=== PATIENT | female | born 1950 | race Caucasian/White ===

== ENCOUNTER 2019-02-06 15:53 | Emergency (ER) | payer MEDICARE, BC ==
[2019-02-06] MEDS ORDERED: Sodium Chloride 0.9% 10 ML Syringe FLUSH PRN (16:24)
[2019-02-06] MEDS ORDERED: Sodium Chloride 0.9% 1,000 ML IV ONE (16:25)
[2019-02-06 17:20] LABS: CHLORIDE,CL 106 mmol/L (98-107); SODIUM,NA 145 mmol/L (136-145)
--- NOTE | 2019-02-06 17:26 | CT ---
[id number] CT/CT Head WO IV EXAM: NONCONTRAST HEAD CT INDICATION: Acute vertigo and fatigue. COMPARISON: January 04, 2012. DISCUSSION: Mild generalized atrophy is similar to the previous examination. Stable mild chronic small vessel ischemic changes. No mass effect or midline shift. No acute hemorrhage or extra-axial fluid collection. No acute territorial infarct is identified. A limited look at the orbits and paranasal sinuses is unremarkable. There are a few chronically opacified mastoid air cells which have not changed in appearance. IMPRESSION: 1. No acute findings. Armando Moon MD 02/06/19 [id number] Thank you for allowing us to participate in the care of your patient.
--- NOTE | 2019-02-06 18:01 | EDM.PDOC ---
ED HPI GENERAL MEDICAL PROBLEM - General Stated Complaint: DIZZY AND WEAK Time Seen by Provider: 02/06/19 16:00 Source of Information: Reports: Patient History Limitations: Reports: No Limitations - History of Present Illness INITIAL COMMENTS - FREE TEXT/NARRATIVE: Pt. presents to ER with complaints of lightheadedness and vertigo that started earlier throughout the day today. She denies any other significant symptoms. No recent head trauma. No fever or chills. No chest pain or shortness of breath. She states that she has never experienced symptoms like this in the past. No nausea, vomiting, or diarrhea. No blood in stools. Denies any history of anemia , cardiovascular, or neurovascular disease. Pt. states that she has been drinking less and has been active as it has been warm outside. She states that she has had some issues with sinus congestion over the past week which she attributes to seasonal allergies. Pt. denies any nausea, vomiting, diarrhea, cough, fever or chills. Her only other complaint is that of fatigue that she has been experiencing for some time. Onset: Today Location: Reports: Generalized - Related Data Allergies Allergy/AdvReac Type Severity Reaction Status Date / Time escitalopram oxalate Allergy Headache Verified 09/22/13 07:57 [From Lexapro] estrogens, conjugated Allergy Headache Verified 09/25/13 10:27 [From Prempro] medroxyprogesterone acetate Allergy Headache Verified 09/25/13 10:27 [From Prempro] Home Meds: Home Meds Niya/Cell/Lipas/Malt/Prt/Lac/in [Digestive Enzymes] 1 each PO TID 09/22/13 [ History] Cholecalciferol (Vitamin D3) [Vitamin D-3] 2,000 unit PO DAILY 09/22/13 [History ] Levothyroxine [Sythroid] 100 mcg PO DAILY 09/22/13 [History] Multivitamin [Multi Vitamin Daily] 1 each PO 09/22/13 [History] [place]-3 Fatty Acids [[place]-3] 1,000 mg PO DAILY 09/22/13 [History] Niya/Cell/Lipas/Malt/Prt/Lac/in [Digestive Enzymes] 1 cap PO TID 03/10/15 [ History] Cholecalciferol (Vitamin D3) [Vitamin D3] 2,000 units PO DAILY 03/10/15 [History ] Fish Oil/[place]-3 Fatty Acids [Fish Oil 1,000 MG] 1,000 mg PO BID 03/10/15 [ History] Levothyroxine [Synthroid] 1 tab PO DAILY 03/10/15 [History] Multivitamin [Daily Vitamin] 1 tab PO DAILY 03/10/15 [History] Past Medical History Other HEENT History: bruning mouth syndrome Other Gastrointestinal History: fm hx malignant neoplasm of bi tract Other Musculoskeletal History: rt thigh pain ED ROS GENERAL - Review of Systems Review Of Systems: See Below Constitutional: Reports: No Symptoms, Fatigue. Denies: Fever, Chills, Malaise, Weakness, Night Sweats HEENT: Reports: No Symptoms Respiratory: Reports: No Symptoms Cardiovascular: Reports: Lightheadedness. Denies: Chest Pain, Dyspnea on Exertion, Edema, Orthopnea, Palpitations Endocrine: Reports: No Symptoms GI/Abdominal: Reports: No Symptoms : Reports: No Symptoms Musculoskeletal: Reports: No Symptoms Skin: Reports: No Symptoms Neurological: Reports: Dizziness. Denies: Confusion, Headache, Numbness, Paresthesia, Trouble Speaking, Difficulty Walking, Gait Disturbance Psychiatric: Reports: No Symptoms Hematologic/Lymphatic: Reports: No Symptoms Immunologic: Reports: No Symptoms ED EXAM, GENERAL - Physical Exam Exam: See Below Exam Limited By: No Limitations General Appearance: Alert, WD/WN, No Apparent Distress Eye Exam: Bilateral Eye: EOMI, Normal Fundi, Normal Inspection, PERRL Ears: Normal External Exam, Normal Canal, Hearing Grossly Normal, Normal TMs Ear Exam: Bilateral Ear: Auricle Normal, Canal Normal, TM normal Nose: Normal Inspection, Normal Mucosa, No Blood Throat/Mouth: Normal Inspection, Normal Lips, Normal Teeth, Normal Gums, Normal Oropharynx, Normal Voice, No Airway Compromise Head: Atraumatic, Normocephalic Neck: Normal Inspection, Supple, Non-Tender, Full Range of Motion Respiratory/Chest: No Respiratory Distress, Lungs Clear, Normal Breath Sounds, No Accessory Muscle Use, Chest Non-Tender Cardiovascular: Normal Peripheral Pulses, Regular Rate, Rhythm, No Edema, No Gallop, No JVD, No Murmur, No Rub Peripheral Pulses: 4+: Radial (L), Radial (R) GI/Abdominal: Normal Bowel Sounds, Soft, Non-Tender, No Organomegaly, No Distention, No Mass (Female) Exam: Deferred Rectal (Female) Exam: Deferred Back Exam: Normal Inspection Extremities: Normal Inspection, Normal Range of Motion, Non-Tender, No Pedal Edema, Normal Capillary Refill Neurological: Alert, Oriented, CN II-XII Intact, Normal Cognition, Normal Gait, Normal Reflexes, No Motor/Sensory Deficits Psychiatric: Normal Affect, Normal Mood Skin Exam: Warm, Dry, Intact, Normal Color, No Rash Lymphatic: No Adenopathy EKG INTERPRETATION Rhythm: NSR [place]: Normal P-Wave: Present QRS: Normal ST-T: Normal QT: Normal Course - Orders/Labs/Meds Orders: Active Orders 24 hr Category Date Time Status EKG Documentation Completion [RC] STAT Care 02/06/19 16:27 Active Sodium Chloride 0.9% [Saline Flush] Med 02/06/19 16:24 Active 10 ml FLUSH ASDIRECTED PRN Peripheral IV Insertion Adult [OM.PC] Routine Oth 02/06/19 16:25 Ordered Medication Orders Sodium Chloride (Saline Flush) 10 ml FLUSH ASDIRECTED PRN PRN Reason: Keep Vein Open Labs: Laboratory Tests 02/06/19 02/06/19 02/06/19 Range/Units 16:40 16:40 16:40 WBC 4.5 (4.0-10.0) x10^3/uL RBC 4.09 (4.00-5.50) x10^6/uL Hgb 12.5 (12.0-16.0) g/dL Hct 36.4 (33.0-47.0) % MCV 89.0 (78.0-93.0) fL MCH 30.6 (26.0-32.0) pg MCHC 34.3 (32.0-36.0) g/dL RDW Coeff of Tushar 12.1 (10.0-15.0) % Plt Count 255 (130-400) x10^3/uL Neut % (Auto) 54.1 (50.0-80.0) % Lymph % (Auto) 34.6 (25.0-50.0) % [place] % (Auto) 8.2 (2.0-11.0) % Eos % (Auto) 2.4 (0.0-4.0) % Baso % (Auto) 0.7 (0.2-1.2) % PT 10.1 (10.0-12.8) SEC INR 0.9 L (2.0-3.5) Sodium 145 (136-145) mmol/L Potassium 4.0 (3.5-5.1) mmol/L Chloride 106 (98-107) mmol/L Carbon Dioxide 30 (21-32) mmol/L Anion Gap 13.0 (10-20) mmol/L BUN 21 H (7-18) mg/dL Creatinine 0.8 (0.55-1.02) mg/dL Est Cr Clr Drug Dosing TNP Estimated GFR (MDRD) > 60 Glucose 80 (74-106) mg/dL Calcium 9.3 (8.5-10.1) mg/dL Corrected Calcium 9.30 (8.5-10.1) mg/dL Phosphorus 5.6 H (2.6-4.7) mg/dL Magnesium 2.1 (1.8-2.4) mg/dL Total Bilirubin 0.4 (0.2-1.0) mg/dL AST 14 L (15-37) U/L ALT 23 (14-59) U/L Alkaline Phosphatase 53 (46-116) U/L Troponin I < 0.017 (<=0.056) ng/mL C-Reactive Protein 0.4 (<=0.9) mg/dL Total Protein 7.1 (6.4-8.2) g/dL Albumin 4.0 (3.4-5.0) g/dL Globulin 3.1 Albumin/Globulin Ratio 1.29 TSH, Ultra Sensitive 0.671 (0.358-3.74) uIU/mL Meds: Medications Generic Name Dose Route Start Last Admin Trade Name Freq PRN Reason Stop Dose Admin Sodium Chloride 10 ml 02/06/19 16:24 Saline Flush FLUSH ASDIRECTED PRN Keep Vein Open Discontinued Medications Generic Name Dose Route Start Last Admin Trade Name Freq PRN Reason Stop Dose Admin Sodium Chloride 1,000 mls @ 1,000 mls/hr 02/06/19 16:25 Normal Saline IV 02/06/19 17:24 .BOLUS ONE - Radiology Interpretation Free Text/Narrative:: CT brain without contrast negative of acute pathology Departure - Departure Time of Disposition: 18:05 (3) Disposition: Home, Self-Care 01 Condition: Good Clinical Impression: Dehydration - Discharge Information Instructions: Dehydration, Adult, [id number] Referrals: Susan Treadwell MD [Primary Care Provider] - Additional Instructions: Home to rest. Drink plenty of fluids. Recheck in clinic in 10-14 days. - My Orders Last 24 Hours: My Active Orders 02/06/19 16:24 Sodium Chloride 0.9% [Saline Flush] 10 ml FLUSH ASDIRECTED PRN 02/06/19 16:25 Peripheral IV Insertion Adult [OM.PC] Routine 02/06/19 16:27 EKG Documentation Completion [RC] STAT - Assessment/Plan Last 24 Hours: My Active Orders 02/06/19 16:24 Sodium Chloride 0.9% [Saline Flush] 10 ml FLUSH ASDIRECTED PRN 02/06/19 16:25 Peripheral IV Insertion Adult [OM.PC] Routine 02/06/19 16:27 EKG Documentation Completion [RC] STAT Plan: Symptoms resolved after IV fluids. CT brain did not reveal any acute pathology. She was given a total of 1 liter of normal saline. Pt. was urged to increase her fluid intake in the warm weather. Follow-up in clinic in 7-10 days for recheck. Return to ER if she has any increased lightheadedness, chest pain, or shortness of breath.
[2019-02-06 19:12] VITALS: BP 135/73
== END 2019-02-06 18:05 | disposition home or self-care (01) ==
LOC: VM.ED 15:53
DX: E86.0 Dehydration (principal); Z79.899 Other long term (current) drug therapy; Z88.8 Allergy status to other drugs, medicaments and biological substances
CPT/HCPCS: 36415; 70450; 80053; 83735; 84100; 84443; 84484; 85025; 85610; 86140; 93005; 96360; 99284-25; J7030

== ENCOUNTER 2021-03-13 13:02 | Emergency (ER) | payer MEDICARE, BC ==
[2021-03-13] MEDS ORDERED: Sodium Chloride 0.9% 10 ML Syringe FLUSH PRN (13:11)
[2021-03-13] MEDS: Aspirin 81 MG Tab.Chew PO ONE (13:18)
[2021-03-13 14:02] LABS: CHLORIDE,CL 105 mmol/L (98-107); SODIUM,NA 144 mmol/L (136-145)
[2021-03-13 14:03] LABS: ANION GAP 10.8 mmol/L (5-15)
--- NOTE | 2021-03-13 14:10 | EDM.PDOC ---
ED HPI GENERAL MEDICAL PROBLEM - General Stated Complaint: BACK AND CHEST PAIN SOB Time Seen by Provider: 03/13/21 13:15 Source of Information: Reports: Patient, Family History Limitations: Reports: No Limitations - History of Present Illness INITIAL COMMENTS - FREE TEXT/NARRATIVE: Patient presents to the ED for epigastric and chest pain that was accompanied by diaphoresis and nausea today at 12:45/ SHe had eaten in the last hour, felt fine and suddenly had this pain/. It lasted 15 minutes. She is better now. No heart history in herself. Has had a stress test in the last 1-2 years. no recent travel, no chest trauma. Has had her covid vaccine. - Related Data Allergies Allergy/AdvReac Type Severity Reaction Status Date / Time escitalopram oxalate AdvReac Headache Verified 10/03/20 12:04 [From Lexapro] estrogens, conjugated AdvReac Headache Verified 10/03/20 12:04 [From Prempro] medroxyprogesterone acetate AdvReac Headache Verified 10/03/20 12:04 [From Prempro] Home Meds: Home Meds Niya/Cell/Lipas/Malt/Prt/Lac/in [Digestive Enzymes] 1 each PO TID 09/22/13 [History] Levothyroxine [Sythroid] 100 mcg PO DAILY 09/22/13 [History] Multivitamin [Multi Vitamin Daily] 1 each PO DAILY 09/22/13 [History] [place]-3 Fatty Acids [[place]-3] 1,000 mg PO DAILY 09/22/13 [History] Niya/Cell/Lipas/Malt/Prt/Lac/in [Digestive Enzymes] 1 cap PO TID 03/10/15 [History] Cholecalciferol (Vitamin D3) [Vitamin D3] 2,000 units PO DAILY 03/10/15 [History] Past Medical History Other HEENT History: bruning mouth syndrome Other Gastrointestinal History: fm hx malignant neoplasm of bi tract Other Musculoskeletal History: rt thigh pain Social & Family History - Tobacco Use Tobacco Use Status *Q: Never Tobacco User - Alcohol Use Alcohol Use History: Yes Alcohol Use Frequency: Socially - Recreational Drug Use Recreational Drug Use: No Drug Use in Last 12 Months: No ED ROS GENERAL - Review of Systems Review Of Systems: See Below Constitutional: Reports: Diaphoresis HEENT: Reports: No Symptoms Respiratory: Denies: Shortness of Breath, Cough Cardiovascular: Reports: Chest Pain Endocrine: Reports: No Symptoms GI/Abdominal: Reports: No Symptoms : Reports: No Symptoms Musculoskeletal: Reports: No Symptoms Skin: Reports: No Symptoms Neurological: Reports: No Symptoms ED EXAM, GENERAL - Physical Exam Exam: See Below Exam Limited By: No Limitations General Appearance: Alert, WD/WN, No Apparent Distress Eye Exam: Bilateral Eye: EOMI, Normal Inspection, PERRL Nose: Normal Inspection, Normal Mucosa Throat/Mouth: Normal Inspection, Normal Lips, Normal Teeth, Normal Voice Head: Atraumatic, Normocephalic Neck: Normal Inspection, Supple, Non-Tender, Full Range of Motion Respiratory/Chest: No Respiratory Distress, Lungs Clear, Normal Breath Sounds, No Accessory Muscle Use, Chest Non-Tender Cardiovascular: Normal Peripheral Pulses, Regular Rate, Rhythm, No Murmur GI/Abdominal: Normal Bowel Sounds, Soft, Non-Tender, No Organomegaly Extremities: Normal Inspection, Normal Range of Motion, Non-Tender Neurological: Alert, Oriented, CN II-XII Intact, Normal Cognition, Normal Gait, No Motor/Sensory Deficits #1 Interpretation EKG Date: 03/13/21 Time: 13:18 Rhythm: NSR (t) [place]: Normal P-Wave: Present (artifact, and PAC) QRS: Normal ST-T: Normal Comparison: NA - No Prior EKG Course - Vital Signs Last Recorded V/S: Last Vital Signs Temp 36.7 C 03/13/21 16:30 Pulse 60 03/13/21 16:30 Resp 16 03/13/21 16:30 BP 128/70 03/13/21 16:30 Pulse Ox 100 03/13/21 16:30 - Orders/Labs/Meds Orders: Active Orders 24 hr Category Date Time Status Peripheral IV Insertion Adult [OM.PC] Stat Oth 03/13/21 13:11 Ordered Labs: Laboratory Tests 03/13/21 03/13/21 03/13/21 Range/Units 13:30 13:30 15:19 WBC 5.4 (4.0-10.0) x10^3/uL RBC 4.22 (4.00-5.50) x10^6/uL Hgb 12.8 (12.0-16.0) g/dL Hct 37.8 (33.0-47.0) % MCV 89.6 (78.0-93.0) fL MCH 30.3 (26.0-32.0) pg MCHC 33.9 (32.0-36.0) g/dL RDW Coeff of Tushar 12.5 (10.0-15.0) % Plt Count 294 (130-400) x10^3/uL Neut % (Auto) 60.5 (50.0-80.0) % Lymph % (Auto) 30.6 (25.0-50.0) % [place] % (Auto) 6.3 (2.0-11.0) % Eos % (Auto) 2.0 (0.0-4.0) % Baso % (Auto) 0.6 (0.2-1.2) % Sodium 144 (136-145) mmol/L Potassium 3.8 (3.5-5.1) mmol/L Chloride 105 (98-107) mmol/L Carbon Dioxide 32 (21-32) mmol/L Anion Gap 10.8 (5-15) mmol/L BUN 12 (7-18) mg/dL Creatinine 0.9 (0.55-1.02) mg/dL Est Cr Clr Drug Dosing TNP Estimated GFR (MDRD) > 60 Glucose 101 H (70-99) mg/dL Calcium 8.7 (8.5-10.1) mg/dL Corrected Calcium 8.7 (8.5-10.1) mg/dL Magnesium 2.2 (1.8-2.4) mg/dL Total Bilirubin 0.4 (0.2-1.0) mg/dL AST 20 (15-37) U/L ALT 24 (14-59) U/L Alkaline Phosphatase 60 (46-116) U/L Troponin I High Sens < 4 < 4 (<=51) ng/L NT-Pro-B Natriuret Pep 237 H (<=125) pg/mL Total Protein 7.1 (6.4-8.2) g/dL Albumin 4.0 (3.4-5.0) g/dL Globulin 3.1 Albumin/Globulin Ratio 1.29 Meds: Medications Discontinued Medications Generic Name Dose Route Start Last Admin Trade Name Freq PRN Reason Stop Dose Admin Aspirin 324 mg 03/13/21 13:11 03/13/21 13:18 Aspirin 81 Mg Tab.Chew PO 03/13/21 13:12 324 mg ONETIME ONE Administration Sodium Chloride 10 ml 03/13/21 13:11 Sodium Chloride 0.9% 10 Ml Syringe FLUSH ASDIRECTED PRN Keep Vein Open - Radiology Interpretation Free Text/Narrative:: normal chest x-ray interpreted by radiology - Re-Assessments/Exams Free Text/Narrative Re-Assessment/Exam: 03/13/21 14:09 given aspirin 324 mg, no pain now, but pain started 30 minutes prior to arrival. Will repeat a troponin at 2 hours. 03/13/21 continue to be pain free. Stress test in the last 6 months. Has follow up in a week. Discussed negative troponin and need for possible EGd if problems continued. Departure - Departure Time of Disposition: 16:27 Disposition: Home, Self-Care 01 Condition: Good Clinical Impression: Chest pain Instructions: Nonspecific Chest Pain, Adult Referrals: PCP,None [Primary Care Provider] - Forms: ED Department Discharge Additional Instructions: Testing was negative for heart attack today. Follow up with PCP. Sepsis Event Note (ED) - Focused Exam Vital Signs: Vital Signs Temp Pulse Resp BP Pulse Ox 03/13/21 16:30 36.7 C 60 16 128/70 100 03/13/21 15:30 36.6 C 60 16 132/72 100 03/13/21 14:30 65 16 132/60 99 03/13/21 13:10 37.0 C 62 16 136/67 99 - My Orders Last 24 Hours: My Active Orders 03/13/21 13:11 Peripheral IV Insertion Adult [OM.PC] Stat - Assessment/Plan Last 24 Hours: My Active Orders 03/13/21 13:11 Peripheral IV Insertion Adult [OM.PC] Stat
--- NOTE | 2021-03-13 14:10 | CR ---
[id number] RAD/RAD Chest PA or AP 1V EXAM: FRONTAL CHEST INDICATION: CHEST PAIN. COMPARISON: September 18, 2012. DISCUSSION: The lungs are mildly hyperinflated compatible with COPD, but clear. Chronic bilateral rib fractures are unchanged. Normal heart size. No effusions. IMPRESSION: 1. No acute findings. Armando Moon MD 03/13/21 3042 Thank you for allowing us to participate in the care of your patient.
[2021-03-13 17:42] VITALS: BP 128/70; PULSE 60
== END 2021-03-13 16:45 | disposition home or self-care (01) ==
LOC: VM.ED 13:02
DX: R07.9 Chest pain, unspecified (principal); Z79.899 Other long term (current) drug therapy; Z88.5 Allergy status to narcotic agent; Z88.8 Allergy status to other drugs, medicaments and biological substances
CPT/HCPCS: 36415; 71045; 80053; 83735; 83880; 84484; 85025; 93005; 93010; 99284; 99285-25; A9270-GY

== ENCOUNTER 2024-04-07 02:00 | Emergency (ER) | payer MEDICARE, BC ==
[2024-04-07] MEDS ORDERED: Sodium Chloride 0.9% 10 ML Syringe FLUSH PRN (02:06)
[2024-04-07] MEDS: HYDROmorphone 0.5 MG/0.5 ML Syringe IVPUSH ONE ×2 (02:23→02:45)
[2024-04-07 02:44] VITALS: PULSE 68
[2024-04-07 03:17] VITALS: BP 136/60
== END 2024-04-07 03:05 | disposition home or self-care (01) ==
LOC: VM.ED 02:00
DX: S52.571A Other intraarticular fracture of lower end of right radius, initial encounter for closed fracture (principal); S52.611A Displaced fracture of right ulna styloid process, initial encounter for closed fracture; Z79.890 Hormone replacement therapy; Z79.899 Other long term (current) drug therapy; Z88.8 Allergy status to other drugs, medicaments and biological substances; W18.30XA Fall on same level, unspecified, initial encounter
CPT/HCPCS: 29125; 73110-RT; 96374; 99284; 99284-25; J1170

== ENCOUNTER 2025-07-22 12:46 | Inpatient (IN) | payer MEDICARE, BC ==
[2025-07-22] MEDS ORDERED: Ondansetron 4 MG/2 ML SDV IV PRN (14:28)
[2025-07-22] MEDS ORDERED: Ondansetron 4 MG Tab.DIS PO PRN (14:28)
[2025-07-22] MEDS: Sodium Chloride 0.9% 10 ML Syringe FLUSH PRN (14:31)
[2025-07-22] MEDS: Potassium Bicarbonate 25 MEQ Tab.EFF PO SCH (15:00)
[2025-07-22] MEDS ORDERED: LORazepam 2 MG/ML SDV IVPUSH PRN (16:46)
[2025-07-22] MEDS ORDERED: Flumazenil 0.1 MG/ML 5 ML MDV IVPUSH PRN (16:46)
[2025-07-22] MEDS ORDERED: Hypromellose 0.3% Ophth Soln 15 ML Bottle EYEBOTH PRN (17:11)
[2025-07-22] MEDS: NS with KCl 40mEq 1,000 ML IV SCH (17:15)
[2025-07-22 17:37] LABS: A/G RATIO 1.06; ALANINE AMINOTRANSFERASE,ALT 15.0 U/L (14-59); ASPARTATE AMNIOTRANSFERASE,AST 12.0 U/L (15-37); BILIRUBIN TOTAL 0.4 mg/dL (0.2-1.0); BLOOD UREA NITROGEN,BUN 10.0 mg/dL (7-18); CARBON DIOXIDE,CO2 29.0 mmol/L (21-32); CHLORIDE,CL 103.0 mmol/L (98-107); CREATININE 0.7 mg/dL (0.55-1.02); EST CRCL DRUG DOSING (CG) 60.56 mL/min; GLUCOSE RANDOM 127.0 mg/dL (70-99); POTASSIUM,K 3.2 mmol/L (3.5-5.1); PROTEIN TOTAL,TP 6.4 g/dL (6.4-8.2); SODIUM,NA 143.0 mmol/L (136-145)
[2025-07-22 17:38] LABS: ESTIMATED GFR 89.0 mL/min (>=60)
[2025-07-22] MEDS: Potassium Chloride 20 MEQ Tab.ER PO SCH (20:03)
[2025-07-23 06:46] LABS: BASOPHILS ABSOLUTE AUTO 0.0 x10^3/uL (0.0-0.2); BASOPHILS PERCENT AUTO 0.2 % (0.2-1.2); EOSINOPHILS ABSOLUTE AUTO 0.1 x10^3/uL (0.0-0.5); EOSINOPHILS PERCENT AUTO 1.8 % (0.0-4.0); IMMATURE GRAN ABSOLUTE AUTO 0.00 x10^3/uL (0.00-0.07); IMMATURE GRAN PERCENT AUTO 0.00 % (0.00-0.43); LYMPHOCYTES ABSOLUTE AUTO 1.4 x10^3/uL (1.0-4.8); LYMPHOCYTES PERCENT AUTO 30.4 % (25.0-50.0); MONOCYTES ABSOLUTE AUTO 0.5 x10^3/uL (0.0-0.8); MONOCYTES PERCENT AUTO 11.7 % (2.0-11.0); NEUTROPHILS ABSOLUTE AUTO 2.5 x10^3/uL (1.8-7.7); NEUTROPHILS PERCENT AUTO 55.9 % (50.0-80.0); PLATELET COUNT,PLT 302 x10^3/uL (130-400); RED BLOOD CELL COUNT 3.75 x10^6/uL (4.00-5.50); WHITE BLOOD CELL COUNT,WBC 4.5 x10^3/uL (4.0-10.0)
[2025-07-23 07:02] LABS: BLOOD UREA NITROGEN,BUN 6.0 mg/dL (7-18); CARBON DIOXIDE,CO2 27.0 mmol/L (21-32); CHLORIDE,CL 110.0 mmol/L (98-107); CREATININE 0.6 mg/dL (0.55-1.02); EST CRCL DRUG DOSING (CG) 70.66 mL/min; GLUCOSE RANDOM 88.0 mg/dL (70-99); POTASSIUM,K 3.0 mmol/L (3.5-5.1); SODIUM,NA 146.0 mmol/L (136-145)
[2025-07-23 07:03] LABS: ESTIMATED GFR 92.0 mL/min (>=60)
[2025-07-23] MEDS: Sodium Chloride 0.45% with KCl 1,000 ML IV SCH (11:20)
[2025-07-23] MEDS: Potassium Chloride 20 MEQ Tab.ER PO SCH (16:00)
[2025-07-23] MEDS: Iopamidol 612 MG/ML 100 ML Bottle IVPUSH ONE (16:48)
[2025-07-23] MEDS: Iopamidol 612 MG/ML 30 ML SDV PO ONE (16:48)
[2025-07-24 08:02] LABS: BASOPHILS ABSOLUTE AUTO 0.0 x10^3/uL (0.0-0.2); BASOPHILS PERCENT AUTO 0.4 % (0.2-1.2); EOSINOPHILS ABSOLUTE AUTO 0.1 x10^3/uL (0.0-0.5); EOSINOPHILS PERCENT AUTO 1.6 % (0.0-4.0); IMMATURE GRAN ABSOLUTE AUTO 0.02 x10^3/uL (0.00-0.07); IMMATURE GRAN PERCENT AUTO 0.40 % (0.00-0.43); LYMPHOCYTES ABSOLUTE AUTO 1.4 x10^3/uL (1.0-4.8); LYMPHOCYTES PERCENT AUTO 28.8 % (25.0-50.0); MONOCYTES ABSOLUTE AUTO 0.4 x10^3/uL (0.0-0.8); MONOCYTES PERCENT AUTO 8.8 % (2.0-11.0); NEUTROPHILS ABSOLUTE AUTO 2.9 x10^3/uL (1.8-7.7); NEUTROPHILS PERCENT AUTO 60.0 % (50.0-80.0); PLATELET COUNT,PLT 316 x10^3/uL (130-400); RED BLOOD CELL COUNT 4.01 x10^6/uL (4.00-5.50); WHITE BLOOD CELL COUNT,WBC 4.9 x10^3/uL (4.0-10.0)
[2025-07-24 08:21] LABS: A/G RATIO 0.94; ALANINE AMINOTRANSFERASE,ALT 15.0 U/L (14-59); ASPARTATE AMNIOTRANSFERASE,AST 16.0 U/L (15-37); BILIRUBIN TOTAL 0.3 mg/dL (0.2-1.0); BLOOD UREA NITROGEN,BUN 3.0 mg/dL (7-18); CARBON DIOXIDE,CO2 28.0 mmol/L (21-32); CHLORIDE,CL 112.0 mmol/L (98-107); CREATININE 0.6 mg/dL (0.55-1.02); EST CRCL DRUG DOSING (CG) 70.66 mL/min; GLUCOSE RANDOM 85.0 mg/dL (70-99); POTASSIUM,K 4.5 mmol/L (3.5-5.1); PROTEIN TOTAL,TP 6.0 g/dL (6.4-8.2); SODIUM,NA 148.0 mmol/L (136-145)
[2025-07-24 08:22] LABS: ESTIMATED GFR 92.0 mL/min (>=60)
[2025-07-25 09:02] LABS: BLOOD UREA NITROGEN,BUN 4.0 mg/dL (7-18); CARBON DIOXIDE,CO2 27.0 mmol/L (21-32); CHLORIDE,CL 107.0 mmol/L (98-107); CREATININE 0.6 mg/dL (0.55-1.02); EST CRCL DRUG DOSING (CG) 70.66 mL/min; GLUCOSE RANDOM 83.0 mg/dL (70-99); POTASSIUM,K 4.3 mmol/L (3.5-5.1); SODIUM,NA 144.0 mmol/L (136-145)
[2025-07-25 09:05] LABS: ESTIMATED GFR 92.0 mL/min (>=60)
[2025-07-25 10:08] VITALS: BP 132/66; PULSE 76
== END 2025-07-25 13:30 | DRG 394 ==
LOC: VM.ED 12:46 → VM.MS 13:30 → OBSVTOIN 07-23 13:04
PROVIDERS: ADMIT Internal Medicine; ATTEND Internal Medicine
DX: K52.1 Toxic gastroenteritis and colitis (principal); F02.811 Dementia in other diseases classified elsewhere, unspecified severity, with agitation; F02.84 Dementia in other diseases classified elsewhere, unspecified severity, with anxiety; F02.818 Dementia in other diseases classified elsewhere, unspecified severity, with other behavioral disturbance; K56.7 Ileus, unspecified; E87.6 Hypokalemia; Z66 Do not resuscitate; T50.995A Adverse effect of other drugs, medicaments and biological substances, initial encounter; F32.9 Major depressive disorder, single episode, unspecified; F43.20 Adjustment disorder, unspecified; E03.9 Hypothyroidism, unspecified; G30.9 Alzheimer's disease, unspecified; N39.3 Stress incontinence (female) (male); M85.80 Other specified disorders of bone density and structure, unspecified site; E78.5 Hyperlipidemia, unspecified; E86.0 Dehydration; Z79.890 Hormone replacement therapy; Z79.899 Other long term (current) drug therapy; Z88.8 Allergy status to other drugs, medicaments and biological substances; Z85.820 Personal history of malignant melanoma of skin; Z90.49 Acquired absence of other specified parts of digestive tract; Z79.1 Long term (current) use of non-steroidal anti-inflammatories (NSAID)
CPT/HCPCS: 36415 ×2; 74019; 74177; 80048; 80053; 84443; 85025; 87070; 87493; 93005; 93010; 99284; A9270 ×9; J3475; J3480 ×3; 96374; 99285-25; Q9967